=== PATIENT | female | born 1950 | race Caucasian/White ===

== ENCOUNTER 2017-03-01 12:44 | Emergency (ER) | payer BC, OTHER ==
[2017-03-01 13:05] VITALS: BP 130/77
--- NOTE | 2017-03-01 13:21 | ERNOTE ---
Lower Extremity HPI - Narrative Date of Service: 03/01/17 - General Lower Extremities Pain: ankle: right Time Seen by Provider: 03/01/17 13:10 Source: patient, family, RN notes reviewed Exam Limitations: no limitations - Immun/Allergies/Home Medications Allergies/Adverse Reactions: Allergies Allergy/AdvReac Type Severity Reaction Status Date / Time No Known Allergies Allergy Verified 03/01/17 13:05 Home Medications: HOME MEDICATIONS Dextroamphetamine/Amphetamine [Amphetamine Salts] 20 mg PO BID PRN 01/15/16 [ Last Taken Unknown] HYDROcodone/ACETAMINOPHEN [[place] 5-325] 1 - 2 tab PO Q6H PRN #16 tab 03/01/17 [ Last Taken Unknown] - History of Present Illness Narrative: 66 year old female presents to the ED for a right ankle injury. She reports twisting the ankle while going down steps. Her pain is diffuse throughout the ankle. She is able to bear weight, but it is painful. She states that this has to be fixed by tomorrow because she cannot miss work. She has not taken anything for pain. Date (Duration): 03/01/17 Time (Timing): 12:00 Occurred: just prior to arrival Location of Incident: home Method of Injury: Reports: twisted Modifying Factors - (Improves): Reports: immobilization, rest Modifying Factors - (Worsens): Reports: movement Associated Symptoms: Denies: unable to bear weight, snapping, popping sensation Other Injuries: Reports: none Subsequent Symptoms: Denies: sensory loss, numbness, motor loss Prior Treament: Denies: recently seen Review of Systems - Review of Systems Constitutional: Present: no symptoms reported EYE: Present: no symptoms reported ENT: Present: no symptoms reported Respiratory: Present: no symptoms reported Cardiology: Present: no symptoms reported Gastrointestinal/Abdominal: Present: no symptoms reported Genitourinary: Present: no symptoms reported Musculoskeletal: Present: joint pain, joint swelling. Absent: back pain, neck pain Skin: Present: change in color. Absent: lesions, lumps Neurological: Absent: weakness, numbness, tingling Endocrine: Present: no symptoms reported Hematologic/Lymphatic: Absent: easy bruising, easy bleeding Psych: Present: no symptoms reported - Patient's Past Medical History Patient History - Medical: No pertinent hx Patient History - Cardiac/Respiratory: No pertinent hx Patient History - Cancer: No Hx of Cancer Patient History - Surgical Procedures: Colonoscopy, EGD, Tubal Ligation - Social History Living Situations: home Alcohol Use: occasionally Drug Use: none Physical Exam - Physical Exam General Appearance: Present: wd/wn, alert, no apparent distress Head Exam: Present: normal inspection, no evidence of injury Neck: Present: normal inspection, nontender, supple Respiratory: Present: no respiratory distress, no accessory muscle use Cardiovascular/Chest: Present: normal peripheral pulses Extremity Exam: Present: decreased range of motion - Right ankle, painful, bony tenderness - Right lateral ankle, joint swelling - mild, right lateral ankle Neurological Exam: Present: alert, oriented, normal mood/affect, no motor/ sensory deficits Skin Exam: Present: normal color, warm/dry ED Progress - Vital Signs Patient's Vital Signs:: I have reviewed the patient's vital signs. Vital Signs: Vital Signs 03/01/17 13:01 Temperature 36.1 C L Pulse Rate 112 H Respiratory 12 Rate Blood Pressure 130/77 O2 Sat by Pulse 97 Oximetry - X-Ray X-Ray #1 X-Ray: ankle - Right Interpretation: Interp. by me X-ray Comments: No acute osseous abnormality visualized - Progress/Reassessment Chief Complaint: Ankle Injury/ Pain Progress:: Improved Procedures Location: Right ankle Pre-Proc Neuro Vasc Exam: normal Pre-Made Type: aircast Alignment good: Yes Splint applied by: Nurse Post-Proc Neuro Vasc Exam: normal Complications: Pt gabbie procedure well Departure Clinical Impression: Ankle sprain Qualifiers: Encounter type: initial encounter Involved ligament of ankle: unspecified ligament Laterality: right Qualified Code(s): S93.401A - Sprain of unspecified ligament of right ankle, initial encounter - Departure Disposition: Home Follow Up Needed Condition: Good Instructions: Ankle Sprain Additional Instructions: Ice and elevate Limit weight bearing as needed Wear WILLI wrap and splint for support Tylenol for mild pain, prescription pain medication for more severe pain Follow up with your doctor as needed Referrals: Hedy Cheng MD [Primary Care Provider] - Prescriptions: HYDROcodone/ACETAMINOPHEN [[place] 5-325] 1 - 2 tab PO Q6H PRN #16 tab PRN Reason: Pain
[2017-03-01] MEDS ORDERED: ACETAMINOPHEN 325 MG TABLET PO ONE (13:29)
[2017-03-01] MEDS ORDERED: HYDROcodone/ACETAMINOPHEN 1 EACH TABLET PO ONE (13:29)
[2017-03-01] MEDS ORDERED: ACETAMINOPHEN 325 MG TABLET ONE (13:37)
[2017-03-01] MEDS ORDERED: HYDROcodone/ACETAMINOPHEN 1 EACH TABLET ONE (13:37)
== END 2017-03-01 14:14 | disposition home or self-care (01) ==
LOC: ER 12:44
PROC: 2W3QX1Z Immobilization of Right Lower Leg using Splint (ICD-10-PCS; principal; 2017-03-01)
DX: S93.401A Sprain of unspecified ligament of right ankle, initial encounter (principal); X50.1XXA Overexertion from prolonged static or awkward postures, initial encounter; Y93.01 Activity, walking, marching and hiking; Y92.009 Unspecified place in unspecified non-institutional (private) residence as the place of occurrence of the external cause